=== PATIENT | male | born 1970 | race African-American/Black ===

== ENCOUNTER 2017-10-28 20:53 | Emergency (ER) | payer OTHER ==
[2017-10-28 22:36] LABS: POC GLUCOSE 188 mg/dL (70-99)
[2017-10-28 22:39] LABS: ADD MAN DIFF? NO
[2017-10-28 22:42] LABS: BASO # 0.1 x10^3/uL (0.0-0.2); BASO % 1 % (0-3); EOS # 0.1 x10^3/uL (0.0-0.7); EOS % 1 % (0-3); HEMATOCRIT 39.9 % (39.0-53.0); HEMOGLOBIN 13.4 g/dL (13.0-17.5); LYMPH # 3.2 x10^3/uL (1.0-4.8); LYMPH % 32 % (24-48); MEAN CORPUSCULAR HEMOGLOBIN 27 pg (25-35); MEAN CORPUSCULAR HGB CONC 34 g/dL (31-37); MEAN CORPUSCULAR VOLUME 80 fL (79-100); MONO # 0.8 x10^3/uL (0.0-1.1); MONO % 8 % (0-9); NEUT # 6.1 x10^3uL (1.8-7.7); NEUT % 59 % (31-73); PLATELET COUNT 239 x10^3/uL (140-400); RED BLOOD COUNT 4.98 x10^6/uL (4.30-5.70); RED CELL DISTRIBUTION WIDTH 14.8 % (11.5-14.5); WHITE BLOOD COUNT 10.3 x10^3/uL (4.0-11.0)
[2017-10-28 22:44] LABS: BILIRUBIN,URINE NEGATIVE (NEG); CLARITY,URINE CLEAR; COLOR,URINE YELLOW; GLUCOSE,URINE NEGATIVE (NEG); NITRITE,URINE NEGATIVE (NEG); PROTEIN,URINE NEGATIVE (NEG-TRACE)
[2017-10-28 22:50] LABS: BACTERIA,URINE 0 /HPF (0-FEW); RBC,URINE OCC /HPF (0-2); WBC,URINE OCC /HPF (0-4)
[2017-10-28 22:53] LABS: ANION GAP 8 (6-14); BLOOD UREA NITROGEN 11 mg/dL (8-26); BUN/CREATININE RATIO 10 (6-20); CALCIUM 8.4 mg/dL (8.5-10.1); CARBON DIOXIDE 27 mmol/L (21-32); CHLORIDE 107 mmol/L (98-107); CREATININE 1.1 mg/dL (0.7-1.3); GFR 87.6; GLUCOSE 160 mg/dL (70-99); POTASSIUM 3.4 mmol/L (3.5-5.1); SODIUM 142 mmol/L (136-145)
[2017-10-28 22:55] LABS: BARBITURATES NEG (NEG); BENZODIAZEPINES NEG (NEG); CANNABINOIDS POS (NEG); COCAINE NEG (NEG); METHADONE NEG (NEG); OPIATES NEG (NEG); PHENCYCLIDINE NEG (NEG)
[2017-10-28 22:56] LABS: AMPHETAMINE/METHAMPHETAMINE NEG (NEG); ETHANOL, URINE NEG (NEG)
[2017-10-28 22:59] LABS: ALBUMIN 3.7 g/dL (3.4-5.0); ALBUMIN/GLOBULIN RATIO 1.1 (1.0-1.7); ALK PHOS 73 U/L (46-116); ALT (SGPT) 35 U/L (16-63); AST (SGOT) 18 U/L (15-37); TOTAL BILIRUBIN 0.7 mg/dL (0.2-1.0); TOTAL PROTEIN 7.1 g/dL (6.4-8.2)
== END 2017-10-29 00:15 | disposition home or self-care (01) ==
LOC: ER 10-29 00:15
DX: G47.30 Sleep apnea, unspecified (principal); R55 Syncope and collapse; R06.83 Snoring; R06.89 Other abnormalities of breathing
CPT/HCPCS: 36415; 70450; 71046; 80053; 80307; 81001; 82962; 85025; 93005; 99285-25

== ENCOUNTER 2018-09-20 18:59 | Emergency (ER) | payer OTHER ==
[~2018-09-20] VITALS: Ht 193 cm; Wt 90.7 kg
[2018-09-20 19:05] VITALS: BP 124/88
--- NOTE | 2018-09-20 19:37 | PHYS DOC ---
Past Medical History Past Medical History: No Pertinent History Past Surgical History: Other Additional Past Surgical Histo: LEFT HAND, LEFT FOOT Alcohol Use: Rarely Drug Use: None Adult General Chief Complaint Chief Complaint: SKIN RASH/ABSCESS [facility] HPI Patient is a 48 year old male presents to the ED complaining of skin tag to right lower abdomen times a couple years. States that he tied a string around it and it started to come loose. Yesterday it started to separate from his lower abdomen. States he wants it removed. Denies growth, skin changes, change in size, abdominal pain, nausea/vomiting, dysuria or fever. Review of Systems Review of Systems Constitutional: Denies fever or chills [] Eyes: Denies change in visual acuity, redness, or eye pain [] HENT: Denies nasal congestion or sore throat [] Respiratory: Denies cough or shortness of breath [] Cardiovascular: No additional information not addressed in HPI [] GI: Denies abdominal pain, nausea, vomiting, bloody stools or diarrhea [] : Denies dysuria or hematuria [] Musculoskeletal: Denies back pain or joint pain [] Integument: Complains of skin tag. Denies rash or skin lesions [] Neurologic: Denies headache, focal weakness or sensory changes [] All other systems were reviewed and found to be within normal limits, except as documented in this note. Allergies Allergies Allergies Coded Allergies Type Severity Reaction Last Updated Verified No Known Drug Allergies 10/19/14 No Physical Exam Physical Exam Constitutional: Well developed, well nourished, no acute distress, non-toxic appearance. [] HENT: Normocephalic, atraumatic Cardiovascular:Heart rate regular rhythm, no murmur [] Lungs & Thorax: Bilateral breath sounds clear to auscultation [] Abdomen: Bowel sounds normal, soft, no tenderness, no masses, no pulsatile masses. [] Skin: Warm, dry. Dime sized skin tag to right lower abdomen. Back: No tenderness, no CVA tenderness. [] Neurologic: Alert and oriented X 3, normal motor function, normal sensory function, no focal deficits noted. [] Psychologic: Affect normal, judgement normal, mood normal. [] Current Patient Data Vital Signs Vital Signs Date Time Temp Pulse Resp B/P (MAP) Pulse Ox O2 Delivery O2 Flow Rate FiO2 09/20/18 19:05 98.6 91 16 124/88 (100) 98 Room Air 98.6 EKG EKG [] Radiology/Procedures Radiology/Procedures [] Course & Med Decision Making Course & Med Decision Making Pertinent Labs and Imaging studies reviewed. (See chart for details) []Skin tag removed. No complications. Patient tolerated well. Discussed symptomatic treatment and wound care. Discussed follow-up and reasons to return to the ED. Patient understands and agrees with plan. Dragon Disclaimer Dragon Disclaimer This electronic medical record was generated, in whole or in part, using a voice recognition dictation system. Departure Departure Impression: Primary Impression: Skin tag Disposition: HOME, SELF-CARE Condition: IMPROVED Referrals: NO PCP (PCP) LEO HILLIARD MD Patient Instructions: Excision of Skin Lesions LILA SARMIENTO Sep 20, 2018 19:37
== END 2018-09-20 19:41 | disposition home or self-care (01) ==
LOC: ER 18:59
DX: L91.8 Other hypertrophic disorders of the skin (principal)
CPT/HCPCS: 99281; 99283

== ENCOUNTER 2020-02-15 04:24 | Emergency (ER) | payer SELFPAY ==
[~2020-02-15] VITALS: Ht 193 cm; Wt 88.6 kg
[2020-02-15 04:30] VITALS: BP 124/70
--- NOTE | 2020-02-15 04:48 | PHYS DOC ---
Past Medical History Past Medical History: No Pertinent History Past Surgical History: Other Additional Past Surgical Histo: LEFT HAND, LEFT FOOT Smoking Status: Current Every Day Smoker Alcohol Use: Rarely Drug Use: None General Adult EDM: Chief Complaint: TESTICULAR PAIN OR INJURY HPI: HPI: Patient is a 49 year old male presents for evaluation of left testicular pain. Prior to arrival patient states he woke up with pain in his left testicle. Pain radiated to his left abdomen. Patient states he sleeps without underwear and feels that he may have injured his testicle while he was asleep. Patient in the past he has caught his testicle on his inner leg and has had similar pain. He denies any urinary issues. Patient took motrin prior to arrival. Patient states abdominal pain has resolved. Patient states testicular pain is almost gone. Patient googled testicular pain and found information on testicular torsion. Physical exam left testicle is not tender to palpation. Patient seems calm and relaxed. Exam is not consistent with testicular torsion. Review of Systems: Review of Systems: Constitutional: Denies fever or chills. [] Eyes: Denies change in visual acuity. [] HENT: Denies nasal congestion or sore throat. [] Respiratory: Denies cough or shortness of breath. [] Cardiovascular: Denies chest pain or edema. [] GI: positive abdominal pain,denies nausea, vomiting, bloody stools or d iarrhea. [] : Denies dysuria. []positive testicular pain Musculoskeletal: Denies back pain or joint pain. [] Integument: Denies rash. [] Neurologic: Denies headache, focal weakness or sensory changes. [] Endocrine: Denies polyuria or polydipsia. [] Lymphatic: Denies swollen glands. [] Psychiatric: Denies depression or anxiety. [] Heart Score: Risk Factors: Risk Factors: DM, Current or recent (<one month) smoker, HTN, HLP, family hist ory of CAD, obesity. Risk Scores: Score 0 - 3: 2.5% MACE over next 6 weeks - Discharge Home Score 4 - 6: 20.3% MACE over next 6 weeks - Admit for Clinical Observation Score 7 - 10: 72.7% MACE over next 6 weeks - Early Invasive Strategies Allergies: Allergies: Allergies Coded Allergies Type Severity Reaction Last Updated Verified No Known Drug Allergies 10/19/14 No Physical Exam: PE: Constitutional: Well developed, well nourished, no acute distress, non-toxic appearance. [] HENT: Normocephalic, atraumatic, bilateral external ears normal, oropharynx moist, no oral exudates, nose normal. [] Eyes: PERRLA, EOMI, conjunctiva normal, no discharge. [] Neck: Normal range of motion, no tenderness, supple, no stridor. [] Cardiovascular:Heart rate regular rhythm, no murmur [] Lungs & Thorax: Bilateral breath sounds clear to auscultation [] Abdomen: Bowel sounds normal, soft, no tenderness, no masses, no pulsatile masses. [] -- no testicular swelling, Skin: Warm, dry, no erythema, no rash. [] Back: No tenderness, no CVA tenderness. [] Extremities: No tenderness, no cyanosis, no clubbing, ROM intact, no edema. [] Neurologic: Alert and oriented X 3, normal motor function, normal sensory function, no focal deficits noted. [] Psychologic: Affect normal, judgement normal, mood normal. [] EKG: EKG: [] Radiology/Procedures: Radiology/Procedures: [] Course & Med Decision Making: Course & Med Decision Making Pertinent Labs and Imaging studies reviewed. (See chart for details) [] 430hrs Patient evaluated. Plan to check urine. 500hrs Patient eloped after evaluation. Paula Disclaimer: Paula Disclaimer: This electronic medical record was generated, in whole or in part, using a voice recognition dictation system. Departure Departure Impression: Primary Impression: Testicular pain, left Disposition: 01 HOME, SELF-CARE Condition: STABLE Referrals: NO PCP (PCP) Patient Instructions: Testicular Problems and Self-Exam Justicifation of Admission Dx: Justifications for Admission: Justification of Admission Dx: N/A YAMILETH ROSS DO Feb 15, 2020 04:48
[2020-02-15] MEDS ORDERED: TAMS0.4C97 PO (22:52)
[2020-02-15] MEDS ORDERED: HYDR-3164 PO (22:52)
[2020-02-15] MEDS ORDERED: ONDA4TAB7 PO (22:52)
== END 2020-02-15 05:05 | disposition home or self-care (01) ==
LOC: ER 04:24
DX: N50.812 Left testicular pain (principal); R10.9 Unspecified abdominal pain; F17.200 Nicotine dependence, unspecified, uncomplicated
CPT/HCPCS: 99281

== ENCOUNTER 2020-02-15 20:33 | Emergency (ER) | payer SELFPAY ==
[~2020-02-15] VITALS: Ht 193 cm; Wt 90.9 kg
--- NOTE | 2020-02-15 21:32 | PHYS DOC ---
Past Medical History Past Medical History: No Pertinent History Past Surgical History: Other Additional Past Surgical Histo: LEFT HAND, LEFT FOOT Smoking Status: Former Smoker Alcohol Use: None Drug Use: None General Adult EDM: Chief Complaint: TESTICULAR PAIN OR INJURY HPI: HPI: The history was obtained from the patient. Patient is a 49-year-old male with no reported PMH who presents with a chief complaint of left testicle pain. Patient states he initially had an episode of left testicle pain approximately 18 hours prior to arrival that woke him from sleep. He states he presented to the emergency department but had to leave due to a new job. He states that the day he did not have any left testicle discomfort. He states when he lay down this evening approximate 2 hours prior to arrival he noticed the pain again. He states the pain seems to start in his left lower quadrant radiate to his left testicle. Denies trauma or injury. Denies hematuria, polyuria, or dysuria. Denies vomiting. Denies any pain with bowel movement. Denies any syncope. Denies any history of kidney stone. Has tried ibuprofen at home with minimal relief. Denies any penile discharge. Dates the pain is aching in nature. Nothing makes the pain better or worse. No other complaints. Review of Systems: Review of Systems: Constitutional: Denies fever or chills. [] Eyes: Denies change in visual acuity. [] HENT: Denies nasal congestion or sore throat. [] Respiratory: Denies cough or shortness of breath. [] Cardiovascular: Denies chest pain or edema. [] GI: Denies abdominal pain, nausea, vomiting, bloody stools or diarrhea. [] : Positive for testicle pain Musculoskeletal: Denies back pain or joint pain. [] Integument: Denies rash. [] Neurologic: Denies headache, focal weakness or sensory changes. [] Endocrine: Denies polyuria or polydipsia. [] Lymphatic: Denies swollen glands. [] Psychiatric: Denies depression or anxiety. [] Heart Score: Risk Factors: Risk Factors: DM, Current or recent (<one month) smoker, HTN, HLP, family history of CAD, obesity. Risk Scores: Score 0 - 3: 2.5% MACE over next 6 weeks - Discharge Home Score 4 - 6: 20.3% MACE over next 6 weeks - Admit for Clinical Observation Score 7 - 10: 72.7% MACE over next 6 weeks - Early Invasive Strategies Allergies: Allergies: Allergies Coded Allergies Type Severity Reaction Last Updated Verified No Known Drug Allergies 10/19/14 No Physical Exam: PE: Constitutional: Well developed, well nourished, no acute distress, non-toxic appearance. [] HENT: Normocephalic, atraumatic, bilateral external ears normal, oropharynx moist, no oral exudates, nose normal. [] Eyes: PERRLA, EOMI, conjunctiva normal, no discharge. [] Neck: Normal range of motion, no tenderness, supple, no stridor. [] Cardiovascular:Heart rate regular rhythm, no murmur [] Lungs & Thorax: Bilateral breath sounds clear to auscultation [] Abdomen: soft, nontender, nonacute abdomen. No involuntary guarding or rigidity noted. No acute peritonitis. : Circumcised. Testicles without tenderness to palpation. No inguinal masses noted. No skin changes appreciated. Skin: Warm, dry, no erythema, no rash. [] Back: No tenderness, no CVA tenderness. [] Extremities: No tenderness, no cyanosis, no clubbing, ROM intact, no edema. [] Neurologic: Alert and oriented X 3, normal motor function, normal sensory function, no focal deficits noted. [] Psychologic: Affect normal, judgement normal, mood normal. [] Current Patient Data: Labs: Laboratory Tests Test 02/15/20 21:48 White Blood Count 14.1 x10^3/uL Red Blood Count 4.91 x10^6/uL Hemoglobin 12.8 g/dL Hematocrit 39.5 % Mean Corpuscular Volume 80 fL Mean Corpuscular Hemoglobin 26 pg Mean Corpuscular Hemoglobin Concent 33 g/dL Red Cell Distribution Width 15.0 % Platelet Count 252 x10^3/uL Neutrophils (%) (Auto) 74 % Lymphocytes (%) (Auto) 13 % Monocytes (%) (Auto) 12 % Eosinophils (%) (Auto) 1 % Basophils (%) (Auto) 1 % Neutrophils # (Auto) 10.5 x10^3/uL Lymphocytes # (Auto) 1.8 x10^3/uL Monocytes # (Auto) 1.7 x10^3/uL Eosinophils # (Auto) 0.1 x10^3/uL Basophils # (Auto) 0.1 x10^3/uL Urine Collection Type Unknown Urine Color Yellow Urine Clarity Clear Urine pH 6.0 Urine Specific [place] 1.010 Urine Protein Negative mg/dL Urine Glucose (UA) Negative mg/dL Urine Ketones (Stick) Negative mg/dL Urine Blood Large Urine Nitrite Negative Urine Bilirubin Negative Urine Urobilinogen Dipstick 0.2 mg/dL Urine Leukocyte Esterase Negative Urine RBC 11-20 /HPF Urine WBC 1-4 /HPF Urine Bacteria 0 /HPF Sodium Level 144 mmol/L Potassium Level 3.7 mmol/L Chloride Level 108 mmol/L Carbon Dioxide Level 30 mmol/L Anion Gap 6 Blood Urea Nitrogen 15 mg/dL Creatinine 1.4 mg/dL Estimated GFR (Cockcroft-Gault) 65.7 Glucose Level 95 mg/dL Calcium Level 9.0 mg/dL Current Medications Medications (Trade) Dose Ordered Sig/Blaine Route PRN Reason Start Time Stop Time Status Last Admin Dose Admin Acetaminophen/ Hydrocodone Bitart (Lortab 5/325) 1 tab 1X ONCE PO 02/15/20 22:00 02/15/20 22:01 DC 02/15/20 21:39 Vital Signs: Vital Signs Date Time Temp Pulse Resp B/P (MAP) Pulse Ox O2 Delivery O2 Flow Rate FiO2 02/15/20 21:14 99.3 65 18 118/74 (89) 99 Room Air 99.3 EKG: EKG: [] Radiology/Procedures: Radiology/Procedures: [facility] [address] [place] [address] IMAGING REPORT Signed PATIENT: ODESSA MARSHALL ACCOUNT: [id number] : 1970 LOCATION: ER AGE: 49 SEX: M EXAM STATUS: REG ER ORD. PHYSICIAN: MARIA E ARELLANO DO REASON: L testicle pain PROCEDURE: TESTICULAR/SCROTUM Examination: TESTICULAR/SCROTUM History: Reason: L testicle pain / Spl. Instructions: / History: Comparison/Correlation: None Findings: Scrotal ultrasound exam was performed. Right testicle measures 5.9 cm x 3.1 cm x 2.6). Left testicle measures 5.5 cm x 1 cm x 2.0. Testicular echotexture is normal. No evidence of testicular torsion. Epididymides bilaterally are slightly heterogeneous in appearance. No significant flow abnormality seen. Right epididymal cyst or spermatocele measuring 1.3 cm is present. Left epididymal cyst or spermatocele measuring 1 cm diameter noted. Small varicoceles bilaterally seen. Impression: Small varicoceles. Small bilateral hydroceles. No evidence of testicular torsion. No findings to suggest epididymoorchitis. Electronically signed by: Scotty Escobedo MD (02/15/2020 10:37 PM) [facility] DICTATED and SIGNED BY: SCOTTY ESCOBEDO MD DATE: 02/15/202236 [facility] [address] [place] [address] IMAGING REPORT Signed PATIENT: ODESSA MARSHALL ACCOUNT: [id number] : 1970 LOCATION: ER AGE: 49 SEX: M EXAM STATUS: REG ER ORD. PHYSICIAN: MARIA E ARELLANO DO REASON: LLQ pain radiating to testicle PROCEDURE: CT ABDOMEN PELVIS WO CONTRAST Examination: CT ABDOMEN PELVIS WO CONTRAST History: LLQ pain radiating to testicle / Comparison/Correlation: None Findings: Axial images of the abdomen and pelvis were obtained without contrast. Sagittal and coronal reformatted images were provided. Visualized lung bases are clear. Unenhanced liver, spleen, pancreas, adrenal glands are normal. No radiopaque right renal calculi. Subtle hyperdensity within the distal right ureter extending to the ureterovesical junction is present and of indeterminate significance. No right hydroureter or right hydronephrosis to suggest obstruction. There is subtle left perinephric stranding. Punctate nonobstructive left renal lower pole calyceal calculus is present. At the proximal left ureter at the L2-3 level, there is a 0.45 cm x 0.4 cm x 0.5 cm longitudinal calculus. Urinary bladder is unremarkable. Moderate posterior stool throughout colon. Minimal diverticulosis of the colon. Appendix is normal. Mild disc space narrowing of the lumbar spine from L1 to L4 is present. Concentric disc bulge at L4-5 is present with spinal canal stenosis. Impression: Proximal left ureteral obstructive calculus with associated mild left hydronephrosis. Nonobstructive punctate left renal lower pole calyceal calculus. Subtle hyperdensity within the distal right ureter extending to the ureterovesical junction of indeterminate significance. There is no distention of the right collecting system as expected of an obstructive process. No definite calculus involving the distal right ureter. RS Compliance Statement: One or more of the following individualized dose reduction techniques were utilized for this examination: 1. Automated exposure control 2. Adjustment of the mA and/or kV according to patient size 3. Use of iterative reconstruction technique Electronically signed by: Scotty Escobedo MD (02/15/2020 10:31 PM) [facility] DICTATED and SIGNED BY: SCOTTY ESCOBEDO MD DATE: 02/15/202230 [] Course & Med Decision Making: Course & Med Decision Making Pertinent Labs and Imaging studies reviewed. (See chart for details) [] Patient is a 49-year-old male who presents with chief complaint of left lower quadrant pain that radiates to his testicles. Initial vital signs unremarkable. Exam noted above. CT imaging does reveal a left-sided ureteral stone measuring approximately 4 mm. Ultrasound does show hydrocele and small left-sided varicocele. However I do feel his symptoms are most likely related to his kidney stone. Patient does have very mild elevation of creatinine at 1.4. Urinalysis does not show harish evidence of infection. He denies any dysuria. On repeat examination his symptoms been well controlled. I do feel is appropriate candidate for outpatient management. Will be discharged home with Flomax, Zofran, [place]. Return precautions discussed and understood. Stable for discharge home. Paula Disclaimer: Paula Disclaimer: This electronic medical record was generated, in whole or in part, using a voice recognition dictation system. Departure Departure Impression: Primary Impression: Ureterolithiasis Additional Impression: Varicocele Disposition: HOME, SELF-CARE Condition: STABLE Referrals: NO PCP (PCP) Patient Instructions: Kidney Stones Additional Instructions: Please follow with your primary care physician in the next 2 to 3 days. Please follow-up in the emergency department if you develop the following symptoms including but not limited to worsening low back pain, fevers, vomiting, dysuria. [facility] [address] [place] [address] [facility] [address] [place], [place] [id number] [facility] [address] [place] [address] [facility] [address] [place] [address] [facility] [address] [place] [address] [facility] [address] [place] [address] [facility] [place] [address] [place] [address] [facility] [address] [place] [address] [facility] [address] [place] [address] [facility] [address] [place] [address] Scripts Tamsulosin Hcl (FLOMAX) 0.4 Mg Cap.er.24h 1 CAP PO QHS, #7 CAP 11 Refills Prov: MARIA E ARELLANO DO 02/15/20 Ondansetron Hcl (ZOFRAN) 4 Mg Tablet 4 MG PO PRN TID PRN for NAUSEA/VOMITING, #9 nausea/vomiting Prov: MARIA E ARELLANO DO 02/15/20 Hydrocodone/Apap 5-325 (NORCO 5-325 TABLET) 1 Each Tablet 1-2 EACH PO PRN Q6HRS PRN for PAIN, #10 as needed for pain Prov: MARIA E ARELLANO DO 02/15/20 Justicifation of Admission Dx: Justifications for Admission: Justification of Admission Dx: N/A MARIA E ARELLANO DO Feb 15, 2020 21:32
[2020-02-15 21:56] LABS: BASO # 0.1 x10^3/uL (0.0-0.2); BASO % 1 % (0-3); EOS # 0.1 x10^3/uL (0.0-0.7); EOS % 1 % (0-3); HEMATOCRIT 39.5 % (39.0-53.0); HEMOGLOBIN 12.8 g/dL (13.0-17.5); LYMPH # 1.8 x10^3/uL (1.0-4.8); LYMPH % 13 % (24-48); MEAN CORPUSCULAR HEMOGLOBIN 26 pg (25-35); MEAN CORPUSCULAR HGB CONC 33 g/dL (31-37); MEAN CORPUSCULAR VOLUME 80 fL (79-100); MONO # 1.7 x10^3/uL (0.0-1.1); MONO % 12 % (0-9); NEUT # 10.5 x10^3/uL (1.8-7.7); NEUT % 74 % (31-73); PLATELET COUNT 252 x10^3/uL (140-400); RED BLOOD COUNT 4.91 x10^6/uL (4.30-5.70); WHITE BLOOD COUNT 14.1 x10^3/uL (4.0-11.0)
[2020-02-15 21:58] LABS: BILIRUBIN,URINE NEGATIVE (NEG); CLARITY,URINE CLEAR; COLOR,URINE YELLOW; NITRITE,URINE NEGATIVE (NEG); PROTEIN,URINE NEGATIVE (NEG-TRACE); UROBILINOGEN,URINE 0.2 mg/dL (0.2 mg/dL)
[2020-02-15] MEDS ORDERED: HYDROcodone/APAP 5/325MG 1 TAB TABLET PO ONE (22:00)
[2020-02-15 22:03] LABS: BACTERIA,URINE 0 /HPF (0-FEW)
[2020-02-15 22:10] LABS: CREATININE 1.4 mg/dL (0.7-1.3); GFR 65.7; POTASSIUM 3.7 mmol/L (3.5-5.1)
--- NOTE | 2020-02-15 22:34 | RAD ---
Examination: CT ABDOMEN PELVIS WO CONTRAST History: LLQ pain radiating to testicle / Comparison/Correlation: None Findings: Axial images of the abdomen and pelvis were obtained without contrast. Sagittal and coronal reformatted images were provided. Visualized lung bases are clear. Unenhanced liver, spleen, pancreas, adrenal glands are normal. No radiopaque right renal calculi. Subtle hyperdensity within the distal right ureter extending to the ureterovesical junction is present and of indeterminate significance. No right hydroureter or right hydronephrosis to suggest obstruction. There is subtle left perinephric stranding. Punctate nonobstructive left renal lower pole calyceal calculus is present. At the proximal left ureter at the L2-3 level, there is a 0.45 cm x 0.4 cm x 0.5 cm longitudinal calculus. Urinary bladder is unremarkable. Moderate posterior stool throughout colon. Minimal diverticulosis of the colon. Appendix is normal. Mild disc space narrowing of the lumbar spine from L1 to L4 is present. Concentric disc bulge at L4-5 is present with spinal canal stenosis. Impression: Proximal left ureteral obstructive calculus with associated mild left hydronephrosis. Nonobstructive punctate left renal lower pole calyceal calculus. Subtle hyperdensity within the distal right ureter extending to the ureterovesical junction of indeterminate significance. There is no distention of the right collecting system as expected of an obstructive process. No definite calculus involving the distal right ureter. PQRS Compliance Statement: One or more of the following individualized dose reduction techniques were utilized for this examination: 1. Automated exposure control 2. Adjustment of the mA and/or kV according to patient size 3. Use of iterative reconstruction technique Electronically signed by: Scotty Keen MD (02/15/2020 10:31 PM) [facility]
--- NOTE | 2020-02-15 22:40 | RAD ---
Examination: TESTICULAR/SCROTUM History: Reason: L testicle pain / Spl. Instructions: / History: Comparison/Correlation: None Findings: Scrotal ultrasound exam was performed. Right testicle measures 5.9 cm x 3.1 cm x 2.6). Left testicle measures 5.5 cm x 1 cm x 2.0. Testicular echotexture is normal. No evidence of testicular torsion. Epididymides bilaterally are slightly heterogeneous in appearance. No significant flow abnormality seen. Right epididymal cyst or spermatocele measuring 1.3 cm is present. Left epididymal cyst or spermatocele measuring 1 cm diameter noted. Small varicoceles bilaterally seen. Impression: Small varicoceles. Small bilateral hydroceles. No evidence of testicular torsion. No findings to suggest epididymoorchitis. Electronically signed by: Scotty Keen MD (02/15/2020 10:37 PM) [facility]
[2020-02-15] MEDS ORDERED: TAMS0.4C97 PO (22:52)
[2020-02-15] MEDS ORDERED: ONDA4TAB7 PO (22:52)
[2020-02-15] MEDS ORDERED: HYDR-3164 PO (22:52)
[2020-02-15 23:00] VITALS: BP 130/68
== END 2020-02-15 23:06 | disposition home or self-care (01) ==
LOC: ER 20:33
DX: N13.2 Hydronephrosis with renal and ureteral calculous obstruction (principal); I86.1 Scrotal varices; N43.3 Hydrocele, unspecified; Z87.891 Personal history of nicotine dependence
CPT/HCPCS: 36415; 74176; 76870; 80048; 81001; 85025; 99285